=== PATIENT | male | born 1975 | race Caucasian/White ===

== ENCOUNTER 2020-04-24 09:56 | Outpatient (CLI) | payer BC, SELFPAY ==
[2020-04-24 10:13] LABS: Appearance Urine Clear (Clear); Basophils Absolute Auto 0.05 K/mm3 (0.00-0.10); Basophils Percent Auto 0.8 % (0.0-1.0); Bilirubin Urine Negative (Negative); Color Urine Yellow (Yellow); Eosinophils Absolute Auto 0.19 K/mm3 (0.02-0.50); Eosinophils Percent Auto 2.9 % (1.0-6.0); Glucose Urine UA Negative (Negative); Hematocrit 42.6 % (40.0-54.0); Hemoglobin 14.8 g/dL (14.0-18.0); Immature Granulocyte Absolute 0.02 K/mm3 (0.00-0.00); Immature Granulocyte Percent A 0.3 % (0.0-0.0); Ketones Urine Negative (Negative); Leukocyte Esterase Ur Negative (Negative); Lymphocytes Absolute Auto 2.22 K/mm3 (1.10-4.50); Lymphocytes Percent Auto 33.8 % (18.0-42.0); Mean Corpuscular HGB Conc 34.7 g/dL (32.0-36.0); Mean Corpuscular Hemoglobin 30.8 pg (27.0-31.0); Mean Corpuscular Volume 88.6 fL (78.0-102.0); Mean Platelet Volume 8.6 fl (8.7-11.0); Monocytes Absolute Auto 0.44 K/mm3 (0.10-0.90); Monocytes Percent Auto 6.7 % (2.0-11.0); Neutrophils Absolute Auto 3.7 K/mm3 (1.7-7.2); Neutrophils Percent Auto 55.5 % (50.0-70.0); Nitrate Urine Negative (Negative); Platelet Count Result 228 K/mm3 (150-420); Protein Urine Negative (Negative); Red Blood Count 4.81 M/mm3 (4.70-6.10); Red Cell Distribution Width 11.5 % (11.6-14.4); Specific Grav Ur 1.015 (1.010-1.020); Urobilinogen Urine 0.2 mg/dL (0.2-1.0); White Blood Count 6.6 K/mm3 (4.8-10.8)
[2020-04-24 10:51] LABS: Add Urine Microscopic? YES; Blood Urine Trace-Intact (Negative); RBC Urine None seen /hpf (0-2); WBC Urine None seen /hpf (0-3)
[2020-04-24 10:52] LABS: Bacteria Urine Trace /hpf
[2020-04-24 11:02] LABS: Alanine Aminotransferase 35 U/L (16-63); Alkaline Phosphatase 73 U/L (46-116); Anion Gap 10 mmol/L (8-16); Aspartate Amino Transferase 18 U/L (15-37); Bilirubin,Total 0.8 mg/dL (0.00-1.00); Calcium 8.8 mg/dL (8.5-10.1); Carbon Dioxide 30 mmol/L (21-32); Chloride 101 mmol/L (98-108); Cholesterol 199 mg/dL (0-200); Estimated Glomerular Filt Rate > 60; Glucose 96 mg/dL (70-99); HDL Direct 47 mg/dL (40-60); LDL Cholesterol Calculated 138 mg/dL (<130); Potassium 4.3 mmol/L (3.5-5.1); Sodium 141 mmol/L (136-145); Total Protein 6.9 g/dL (6.4-8.2); Triglycerides 72 mg/dL (0-150)
[2020-04-24 11:12] LABS: Blood Urea Nitrogen 10 mg/dL (7-18); Osmolality Calculated 291 mOsm/kg (285-295)
== END 2020-04-24 09:57 | disposition home or self-care (01) ==
LOC: CHSLAB 10:02
PROVIDERS: PCP Internal Medicine; Visit Provider Internal Medicine
DX: Z00.00 Encounter for general adult medical examination without abnormal findings (principal)
CPT/HCPCS: 36415; 80053; 80061; 81001; 85025

== ENCOUNTER 2023-05-02 08:03 | Outpatient (CLI) | payer OTHER, SELFPAY ==
[2023-05-02 08:25] LABS: Basophils Absolute Auto 0.06 K/mm3 (0.00-0.10); Basophils Percent Auto 0.8 % (0.0-1.0); Eosinophils Absolute Auto 0.18 K/mm3 (0.02-0.50); Eosinophils Percent Auto 2.5 % (1.0-6.0); Hematocrit 44.8 % (40.0-54.0); Hemoglobin 15.1 g/dL (14.0-18.0); Immature Granulocyte Absolute 0.01 K/mm3 (0.00-0.00); Immature Granulocyte Percent A 0.1 % (0.0-0.0); Lymphocytes Absolute Auto 2.21 K/mm3 (1.10-4.50); Lymphocytes Percent Auto 30.4 % (18.0-42.0); Mean Corpuscular HGB Conc 33.7 g/dL (32-36); Mean Corpuscular Volume 89.1 fL (78.0-102.0); Mean Platelet Volume 8.5 fl (8.7-11.0); Monocytes Absolute Auto 0.49 K/mm3 (0.10-0.90); Monocytes Percent Auto 6.7 % (2.0-11.0); Neutrophils Absolute Auto 4.32 K/mm3 (1.70-7.20); Neutrophils Percent Auto 59.5 % (50.0-70.0); Platelet Count Result 241 K/mm3 (150-420); Red Blood Count 5.03 M/mm3 (4.70-6.10); Red Cell Distribution Width 11.5 % (11.6-14.4); White Blood Count 7.3 K/mm3 (4.8-10.8)
[2023-05-02 08:26] LABS: Appearance Urine Clear (Clear); Bilirubin Urine Negative (Negative); Blood Urine 1+ (Negative); Color Urine Yellow (Yellow); Glucose Urine UA Negative (Negative); Ketones Urine Negative (Negative); Leukocyte Esterase Ur Negative (Negative); Nitrate Urine Negative (Negative); Protein Urine Negative (Negative); Urobilinogen Urine 0.2 mg/dL (0.2-1.0)
[2023-05-02 08:33] LABS: Add Urine Microscopic? YES; RBC Urine 0-2 /hpf (0-2)
[2023-05-02 08:34] LABS: Bacteria Urine Rare /hpf; WBC Urine None seen /hpf (0-3)
[2023-05-02 09:11] LABS: Alanine Aminotransferase 27 U/L (16-63); Albumin Level 3.8 g/dL (3.4-5.0); Alkaline Phosphatase 76 U/L (46-116); Anion Gap 7 mmol/L (4-12); Aspartate Amino Transferase 17 U/L (15-37); Bilirubin,Total 0.5 mg/dL (0.00-1.00); Blood Urea Nitrogen 11 mg/dL (7-18); Calcium 9.2 mg/dL (8.5-10.1); Carbon Dioxide 32 mmol/L (21-32); Chloride 105 mmol/L (98-108); Cholesterol 209 mg/dL (0-200); Estimated Glomerular Filt Rate > 60; Glucose 105 mg/dL (70-99); HDL Direct 56 mg/dL (40-60); LDL Cholesterol Calculated 141 mg/dL (<130); Osmolality Calculated 297 mOsm/kg (285-295); Potassium 4.6 mmol/L (3.5-5.1); Sodium 144 mmol/L (136-145); Thyroid Stimulating Hormone 1.45 uIU/mL (0.36-3.74); Total Protein 6.8 g/dL (6.4-8.2); Triglycerides 62 mg/dL (0-150)
== END 2023-05-02 08:04 | disposition home or self-care (01) ==
LOC: CHSLAB 08:09
PROVIDERS: PCP Internal Medicine; Visit Provider Internal Medicine
DX: Z00.00 Encounter for general adult medical examination without abnormal findings (principal)
CPT/HCPCS: 36415; 80053; 80061; 81001; 84443; 85025

== ENCOUNTER 2023-05-07 13:24 | Outpatient (CLI) | payer OTHER, SELFPAY ==
--- NOTE | ~2023-05-07 | CT_ITS ---
EXAMINATION: CT sinus wo con DATE: 05/07/2023 13:49 INDICATION: Bilateral nasal congestion. Snoring. TECHNIQUE: Computed tomography (CT) of the paranasal sinuses was performed without contrast. Iterativ e reconstruction technique was employed. Exam dose: 310.25 mGy-cm total exam DLP. COMPARISON: None FINDINGS: The nasal septum is not significantly deviated. There is moderate soft tissue swelling of the nasal turbinates. There is soft tissue thickening at the maxillary ostium and infundibulum bilaterally, mild on the rig ht and moderate on the left. There is focal soft tissue thickening at the left frontoethmoid area and partial opacification of lef t ethmoid air cells, especially anteriorly. There is mild soft tissue thickening of the right ethmoi d air cells. There is minimal mucoperiosteal thickening of the maxillar sinuses. The sphenoid sinuses are clear but for very slight mucoperiosteal thickening anteriorly. The mastoid air cells are well-developed and normally aerated bilaterally. Middle and inner ear apparatus are normal bilaterally. IMPRESSION: Partial soft tissue opacification of the ostiomeatal units, greater on the left Focal soft tissue swelling at the left frontoethmoid area and anterior left ethmoid air cells in part icular. Patchy soft tissue thickening of the ethmoids. Minimal mucoperiosteal thickening of the maxillary sinuses, slight anterior mucoperiosteal thickening of the sphenoid sinuses Reviewed, dictated and finalized at Location [facility]. Reviewed, dictated and finalized at location B. IMPRESSION: Partial soft tissue opacification of the ostiomeatal units, greate r on the left Focal soft tissue swelling at the left frontoethmoid area and anterior left eth moid air cells in particular. Patchy soft tissue thickening of the ethmoids. Minimal mucoperiosteal thickening of the maxillary sinuses, slight anterior muc operiosteal thickening of the sphenoid sinuses
== END 2023-05-07 13:25 | disposition home or self-care (01) ==
LOC: CHSIMG 13:26
PROVIDERS: PCP Internal Medicine; Visit Provider Internal Medicine
DX: J32.9 Chronic sinusitis, unspecified (principal); M79.89 Other specified soft tissue disorders
CPT/HCPCS: 70486

== ENCOUNTER 2024-03-19 10:27 | Outpatient (CLI) | payer OTHER, SELFPAY ==
[2024-03-19 10:50] LABS: Hemoglobin A1C 5.3 % (<5.7)
--- OUTSIDE RECORDS SUMMARY | 2024-03-19 11:20 | XMS_ITS | Referral Summary ---
Author Organization [facility], 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 Gender Identity Not on file Sexual Orientation Not on file Last Filed Vital Signs Vital Sign Reading Time Taken Comments Blood Pressure 120/79 06/05/2023 10:55 AM CDT Pulse 56 06/05/2023 10:55 AM CDT Temperature - - Respiratory Rate - - Oxygen Saturation - - Inhaled Oxygen Concentration - - Weight 102.1 kg (225 lb) 06/05/2023 11:00 AM CDT Height 188 cm (6' 2 ) 06/05/2023 11:00 AM CDT Body Mass Index 28.89 06/05/2023 11:00 AM CDT Plan of Treatment Not on file Insurance [facility] Address: [address] [address] [place] [address] [facility] Address: [facility] [address] [id number] Care Teams Eyelet Maker Relationship Specialty Start Date End Date Gisella Deluna MD [address] [place] [address] PCP - General Internal Medicine 06/05/23
--- OUTSIDE RECORDS SUMMARY | 2024-03-19 11:20 | XMS_ITS | Clinical Summary ---
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 Gender Identity Not on file Sexual Orientation [...] 06/05/2023 11:00 AM CDT Plan of Treatment Health Maintenance Due Date Last Done Comments Colon Cancer Screening-Colonoscopy 1977 Depression Screening 1977 Hepatitis C Screening 1977 Hepatitis B Screening 10/11/1995 Regular Well Visit/Exam 18-64 10/11/1995 Influenza Vaccine (#1) 2023 3, 11/04/2021, 10/31/2018, Additional history exists DTaP/Tdap/Td Vaccine (8 - Td or Tdap) 05/03/2033 05/04/2023, 10/18/2011, 06/14/1983, Additional history exists HPV Vaccines Aged Out No longer eligi ble based on patient's age to complete this topic Pneumococcal vaccine <65 Aged Out No longer eligible based on patient's age to complete this topic Insurance [facility] CHOICE PLUS Care Teams Payer Specialist Relationship Specialty Start Date End Date Gisella Deluna MD [address] [place] [address] PCP - General Internal Medicine 06/05/23
[2024-03-19 11:34] LABS: Alanine Aminotransferase 30 U/L (16-63); Albumin Level 4.2 g/dL (3.4-5.0); Alkaline Phosphatase 78 U/L (46-116); Anion Gap 9 mmol/L (4-12); Aspartate Amino Transferase 15 U/L (15-37); Bilirubin,Total 0.8 mg/dL (0.00-1.00); Blood Urea Nitrogen 7 mg/dL (7-18); Calcium 9.2 mg/dL (8.5-10.1); Carbon Dioxide 30 mmol/L (21-32); Chloride 103 mmol/L (98-108); Cholesterol 220 mg/dL (0-200); Estimated Glomerular Filt Rate > 60; Glucose 99 mg/dL (70-99); HDL Direct 57 mg/dL (40-60); LDL Cholesterol Calculated 148 mg/dL (<130); Osmolality Calculated 292 mOsm/kg (285-295); Potassium 4.8 mmol/L (3.5-5.1); Prostate Specific Antigen 1.9 ng/mL (< OR = 4.0); Sodium 142 mmol/L (136-145); Total Protein 7.3 g/dL (6.4-8.2); Triglycerides 77 mg/dL (0-150)
== END 2024-03-19 10:28 | disposition home or self-care (01) ==
LOC: CHSLAB 10:28
PROVIDERS: PCP Internal Medicine; Visit Provider Internal Medicine
DX: E78.00 Pure hypercholesterolemia, unspecified (principal); R73.01 Impaired fasting glucose; Z12.5 Encounter for screening for malignant neoplasm of prostate
CPT/HCPCS: 36415; 80053; 80061; 83036; 84153; G0103

== ENCOUNTER 2024-05-26 01:08 | Day surgery (SDC) | payer OTHER, SELFPAY ==
[2024-05-20 08:58] VITALS: BMI 29.9
--- OUTSIDE RECORDS SUMMARY | 2024-05-26 01:11 | XMS_ITS | Referral Summary ---
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
--- OUTSIDE RECORDS SUMMARY | 2024-05-26 01:11 | XMS_ITS | Clinical Summary ---
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
[2024-05-26 06:25] VITALS: BP 116/83; PULSE 55; RESP 16; TEMP 36.2; O2SAT 100
[2024-05-26] MEDS: LACTATED RINGERS 1,000 ML 150 ML IV CONT (06:35)
--- NOTE | 2024-05-26 07:05 | WPDANESEPPF ---
Anes - Initial Pre Proc Eval Procedure: Operation Date: 05/26/24 07:30 Proposed Procedures p Screening Colonoscopy - Blaze Doe DO Date/Time: 05/26/24 07:05 Surgeon: Blaze Doe DO Pre Op Diagnosis: Screening for malignant neoplasm of colon Patient Data Age: 48 Gender: M Height: 1.83 m Weight: 103.7 kg Last Vital Signs Temp 36.2 C L 05/26/24 06:25 Pulse 55 L 05/26/24 06:25 Resp 16 05/26/24 06:25 BP 116/83 05/26/24 06:25 Pulse Ox 100 05/26/24 06:25 O2 Del Method Room Air 05/26/24 06:25 Allergies Allergy/AdvReac Type Severity Reaction Status Date / Time No Known Allergies Allergy Verified 05/26/24 06:22 Home Medications ?Medication ?Instructions ?Recorded ?Confirmed ?Type loratadine 10 mg tablet (Allergy 10 mg PO DAILY 06/11/23 05/20/24 History Relief (loratadine)) azelastine 137 mcg (0.1 %) nasal 2 spray intranasal Q12H 05/20/24 05/26/24 History spray fluticasone propionate 50 1 spray intranasal DAILY 05/20/24 05/26/24 History mcg/actuation nasal spray,suspension levocetirizine 5 mg tablet 5 mg PO QPM 05/20/24 05/26/24 History pravastatin 10 mg tablet 10 mg PO DAILY 05/20/24 05/26/24 History Patient hx anesthesia problems: none Family hx anesthesia problems: none Results Review: All pre-operative results and documents have been reviewed as part of the pre-operative evaluation. [facility] Family History Family History Father Heart disease Mother Skin cancer Social History Social History Social History: 2 cups of coffee daily Smoking status: Never smoker Tobacco type: smokeless tobacco Additional smoking assessment comments: Chewing tobacco several years ago Alcohol intake: current Drinks per week: 14 Substance use: never Substance use type: does not use Living arrangements: with family Spiritual care concerns: No Anes - Eval Final PreProcedure Day of Procedure 05/26/24 07:05 Patient weight: overweight Heart: regular rate and rhythm Lungs: clear to auscultation Airway: Mallampati scale class II Neurological: alert and oriented Last oral intake: >/= 8 hours ASA classification: II Emergent: no Anesthetic plan: proceed Anesthesia type and monitoring: general GIVS and standard monitoring Results Review: All pre-operative results and documents have been reviewed as part of the pre-operative evaluation. Informed Consent: The patient's anesthetic plan and its attendant risks and benefits were discussed with the patient/family/POA. Questions were solicited and answers provided to the satisfaction of the patient/family/POA.
--- NOTE | 2024-05-26 07:28 | PM.IMHP ---
H&P: HPI History of Present Illness Date/Time: 05/26/24 07:28 Chief Complaint: Screening for colon cancer Narrative: 48 yo man presents for first colonoscopy. No fam hx colon cancer. Denies hematochezia or melena. Review of Systems Review of Systems: All systems reviewed & are unremarkable except as noted in HPI and below Constitutional: Constitutional: Denies chills, Denies fever(s), Denies headache(s) and Denies weight loss Eyes: Eyes: Denies change in vision ENT: Denies dizziness, Denies headache(s), Denies neck mass and Denies throat swelling Cardiovascular: Cardiovascular: Denies chest pain, Denies lightheadedness and Denies dyspnea Respiratory: Respiratory: Denies cough, Denies dyspnea and Denies wheezing Gastrointestinal: Gastrointestinal: Denies abdominal pain, Denies change in bowel habits, Denies nausea and Denies vomiting Genitourinary: Genitourinary: Denies hematuria and Denies dysuria Musculoskeletal: Musculoskeletal: Reports as per HPI Integumentary/Breasts: Skin/Breast: Reports as per HPI Neurologic: Denies dizziness and Denies headache(s) Allergic/Immunologic: Allergic/Immunologic: Denies throat swelling and Denies wheezing PMFSH Family History Family History Father Heart disease Mother Skin cancer Social History Social History Social History: 2 cups of coffee daily Smoking status: Never smoker Tobacco type: smokeless tobacco Additional smoking assessment comments: Chewing tobacco several years ago Alcohol intake: current Drinks per week: 14 Substance use: never Substance use type: does not use Living arrangements: with family Spiritual care concerns: No Meds Home Medications and Allergies Home Medications ?Medication ?Instructions ?Recorded ?Confirmed ?Type loratadine 10 mg tablet (Allergy 10 mg PO DAILY 06/11/23 05/20/24 History Relief (loratadine)) azelastine 137 mcg (0.1 %) nasal 2 spray intranasal Q12H 05/20/24 05/26/24 History spray fluticasone propionate 50 1 spray intranasal DAILY 05/20/24 05/26/24 History mcg/actuation nasal spray,suspension levocetirizine 5 mg tablet 5 mg PO QPM 05/20/24 05/26/24 History pravastatin 10 mg tablet 10 mg PO DAILY 05/20/24 05/26/24 History Allergies Allergy/AdvReac Type Severity Reaction Status Date / Time No Known Allergies Allergy Verified 05/26/24 06:22 Vital Signs Vital Signs - 24 hr 05/26/24 06:25 Temperature 97.1 F L Pulse Rate 55 L Respiratory Rate 16 Blood Pressure 116/83 Pulse Oximetry 100 Oxygen Delivery Room Air Exam Const: General: no acute distress and alert Orientation/consciousness: patient oriented x3 HENMT: Head: normocephalic and atraumatic Ears: hearing grossly normal bilaterally Face/Nose/Sinus: Normal nares present Mouth: Yes Normal oral and palatal mucosa present Eyes: Periorbital: periorbital findings normal Sclera: sclerae normal EOM: EOMs intact bilaterally Neck: Neck: normal visual inspection, no lymphadenopathy and trachea midline Chest: Chest palpation & inspection: normal inspection of the chest Resp: Effort & Inspection: normal respiratory effort Auscultation: clear to auscultation bilaterally Cardio: Jugular venous distension: no JVD Rate: regular rate Rhythm: regular rhythm Heart sounds: S1 normal heart sound present and S2 normal heart sound present Peripheral pulses: Peripheral pulses 2+ throughout GI: Inspection: normal to inspection GI Palp: Yes Soft to palpation, No Tenderness to palpation present (GI), No Guarding due to palpation present (GI) and No Rebound tenderness present Percussion: Yes normal to percussion Auscultation: normal bowel sounds : General: Yes no CVA tenderness Back/Spine/Pelvis: Back: no CVA tenderness Neuro: General: patient oriented x3, no focal motor deficits and CN's II-XI intact bilaterally Cognition (Neuro): normal cognition Speech: normal speech Motor exam (neuro): 5/5 motor strength present throughout Extrem: General: capillary refill normal and no clubbing, cyanosis or edema Assessment and Plan Assessment and plan (1) Screening for colorectal cancer: Code(s): Z12.11 - Encounter for screening for malignant neoplasm of colon; Z12.12 - Encounter for screening for malignant neoplasm of rectum Status: Acute Assessment and Plan: I have recommended colonoscopy. I have discussed the procedure, risks, benefits, and alternatives. Questions were answered. Patient is agreeable to proceed.
[2024-05-26 07:52] VITALS: BP 100/67; PULSE 59; RESP 22; O2SAT 98
[2024-05-26 08:02] VITALS: BP 118/62; PULSE 68; RESP 15; O2SAT 98
[2024-05-26 08:12] VITALS: BP 112/73; PULSE 59; RESP 17; O2SAT 100
== END 2024-05-26 08:22 | disposition home or self-care (01) ==
PROVIDERS: PCP Internal Medicine; Visit Provider Surgery
PROC: 0DJD8ZZ Inspection of Lower Intestinal Tract, Via Natural or Artificial Opening Endoscopic (ICD-10-PCS; CPT 45378; principal; 2024-05-26 07:30)
DX: Z12.11 Encounter for screening for malignant neoplasm of colon (principal); Z84.0 Family history of diseases of the skin and subcutaneous tissue; Z82.49 Family history of ischemic heart disease and other diseases of the circulatory system
CPT/HCPCS: 45378; J2704; J7120

== ENCOUNTER 2024-10-09 08:06 | Outpatient (CLI) | payer OTHER, SELFPAY ==
--- OUTSIDE RECORDS SUMMARY | 2024-10-09 08:12 | XMS_ITS | Clinical Summary ---
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 Gender Identity Not on file Sexual Orientation Not on file Last Filed Vital Signs Vital Sign Reading Time Taken Comments Blood Pressure 120/79 06/05/2023 10:55 AM CDT Pulse 56 06/05/2023 10:55 AM CDT Temperature - - Respiratory Rate - - Oxygen Saturation - - Inhaled Oxygen Concentration - - Weight 102.1 kg (225 lb) 06/05/2023 11:00 AM CDT Height 188 cm (6' 2) 06/05/2023 11:00 AM CDT Body Mass Index 28.89 06/05/2023 11:00 AM CDT Plan of Treatment Health Maintenance Due Date Last Done Comments Colon Cancer Screening-Colonoscopy 1977 Depression Screening 1977 Hepatitis C Screening 1977 Hepatitis B Screening 10/11/1995 Regular Well Visit/Exam 18-64 10/11/1995 Influenza Vaccine (#1) 2024 3, 11/04/2021, 10/31/2018, Additional history exists DTaP/Tdap/Td Vaccine (8 - Td or Tdap) 05/03/2033 05/04/2023, 10/18/2011, 06/14/1983, Additional history exists HPV Vaccines Aged Out No longer eligi ble based on patient's age to complete this topic Pneumococcal vaccine <65 Aged Out No longer eligible based on patient's age to complete this topic Insurance [facility] CHOICE PLUS Care Teams Cook Dessert Relationship Specialty Start Date End Date Gisella Deluna MD [address] [place] [address] PCP - General Internal Medicine 06/05/23
[2024-10-09 08:46] LABS: Alanine Aminotransferase 26 U/L (6-50); Aspartate Amino Transferase 25 U/L (17-59); Cholesterol 199 mg/dL (0-200); Creatine Kinase 78 U/L (55-170); HDL Direct 54 mg/dL; Triglycerides 93 mg/dL (<150)
== END 2024-10-09 08:07 | disposition home or self-care (01) ==
LOC: CHSLAB 08:08
PROVIDERS: PCP Internal Medicine; Visit Provider Internal Medicine
DX: E78.00 Pure hypercholesterolemia, unspecified (principal)
CPT/HCPCS: 36415; 80061; 82550; 84450; 84460

== ENCOUNTER 2025-02-02 15:26 | Outpatient (CLI) | payer OTHER, SELFPAY ==
--- NOTE | ~2025-02-02 | XR_ITS ---
XR hip LT min 2V 02/02/2025 15:53 Indication: Left hip pain Procedure: 2 views left hip Comparison: No prior studies for comparison. Findings: There is moderate osteoarthritis of the left hip. No fracture, subluxation or dislocation. No soft tissue abnormality. No foreign body. Impression: 1: Moderate osteoarthritis of the left hip. Reviewed, dictated and finalized at location O. L DRESSING CUTTER Impression: 1: Moderate osteoarthritis of the left hip.
--- OUTSIDE RECORDS SUMMARY | 2025-02-02 15:30 | XMS_ITS | Clinical Summary ---
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
== END 2025-02-02 15:27 | disposition home or self-care (01) ==
LOC: CHSIMG 15:27
PROVIDERS: PCP Internal Medicine; Visit Provider Internal Medicine
DX: M25.552 Pain in left hip (principal); M17.12 Unilateral primary osteoarthritis, left knee
CPT/HCPCS: 73502